=== PATIENT | female | born 1970 | race Asian ===

== ENCOUNTER 2017-05-18 04:20 | Inpatient (IN) | payer SELFPAY ==
[~2017-05-18] VITALS: Ht 163 cm; Wt 72.1 kg
[2017-05-18] MEDS ORDERED: CARBOPROST 250 MCG/ML AMP IM PRN (04:55)
[2017-05-18] MEDS ORDERED: NALBUPHINE HYDROCHLORIDE 10 MG/ML VIAL IVP PRN (04:55)
[2017-05-18] MEDS ORDERED: OXYTOCIN 10 UNITS/ML VIAL IM SCH (04:55)
[2017-05-18] MEDS ORDERED: PROMETHAZINE 25 MG/ML VIAL IVP PRN (04:55)
[2017-05-18] MEDS ORDERED: METHYLERGONOVINE 0.2 MG/ML AMP IM PRN (04:55)
[2017-05-18] MEDS: LACTATED RINGERS 1,000 ML IV SCH ×2 (05:00→07:00)
[2017-05-18] MEDS ORDERED: OXYTOCIN 10 UNITS/ML VIAL IM ONE (05:00)
[2017-05-18 05:27] LABS: BASOPHILS # (AUTO) 0.2 K/uL (0.00-0.22); BASOPHILS % (AUTO) 2.6 % (0.0-2.0); EOSINOPHILS % (AUTO) 0.5 % (0.0-4.0); HEMATOCRIT 34.6 % (36-48); HEMOGLOBIN 11.1 g/dL (12.0-16.0); MEAN CORPUSCULAR HEMOGLOBIN 28 pg (27-31); MEAN CORPUSCULAR HGB CONC 32 g/dL (33-37); MEAN CORPUSCULAR VOLUME 88 fL (80-94); MONOCYTES # (AUTO) 0.5 K/uL (0.8-1.0); NEUTROPHILS # (AUTO) 6.1 K/uL (1.8-7.7); NEUTROPHILS % (AUTO) 67.9 % (42.2-75.2); PLATELET COUNT (AUTO) 104 K/uL (140-450); RED BLOOD CELL COUNT(AUTO) 3.92 MIL/uL (4.20-5.40); RED CELL DISTRIBUTION WIDTH 16.3 % (11.6-13.7); WHITE BLOOD COUNT (AUTO) 8.8 K/uL (4.8-10.8)
[2017-05-18] MEDS ORDERED: NALBUPHINE HYDROCHLORIDE 10 MG/ML VIAL ONE (05:27)
[2017-05-18 05:29] LABS: BILIRUBIN,URINE NEGATIVE (NEGATIVE); BLOOD, URINE 3+ (NEGATIVE); COLOR,URINE YELLOW (YELLOW); LEUKOCYTE ESTERASE ,URINE NEGATIVE (NEGATIVE); NITRITE, URINE NEGATIVE (NEGATIVE); UGLUCOSE NEGATIVE (NEGATIVE)
[2017-05-18] MEDS ORDERED: OXYTOCIN 20 UNITS/LR PREMIX 1,000 ML IV ONE (05:45)
[2017-05-18] MEDS ORDERED: OXYTOCIN 10 UNITS/ML VIAL ONE (05:45)
[2017-05-18] MEDS ORDERED: LIDOCAINE 1% 50 ML ONE (05:49)
[2017-05-18 05:56] LABS: ALBUMIN 2.5 g/dL (3.4-5.0); ANION GAP 12.6 (8-16); CARBON DIOXIDE 24.9 mmol/L (21-32); CREATININE 0.6 mg/dL (0.6-1.3); POTASSIUM 3.5 mmol/L (3.5-5.1); TOTAL BILIRUBIN 0.3 mg/dL (0.0-1.0)
[2017-05-18] MEDS ORDERED: fentaNYL 0.05 MG/ML VIAL ONE (05:57)
[2017-05-18] MEDS ORDERED: MORPHINE PRES FREE 10 MG/10 ML AMP IV ONE (06:21)
[2017-05-18 06:32] LABS: APPEARANCE,URINE CLEAR (CLEAR)
[2017-05-18 06:33] LABS: RBC,URINE 0-5 (RARE) /HPF (0-5); WBC,URINE 0-5 (RARE) /HPF (0-5)
[2017-05-18 07:34] VITALS: BP 115/66
[2017-05-18] MEDS ORDERED: HYDROcodone/APAP 5/325 MG 1 TAB TAB PO PRN (08:00)
[2017-05-18] MEDS ORDERED: TEMAZEPAM 15 MG CAP PO PRN (08:00)
[2017-05-18] MEDS ORDERED: BENZOCAINE/MENTHOL 20%-0.5% 60 GM CAN TP PRN (08:00)
[2017-05-18] MEDS ORDERED: oxyCODONE/APAP 5/325 MG 1 TAB TAB PO PRN (08:00)
--- NOTE | 2017-05-18 09:54 | NUR ---
PATIENT HAS BEEN SCREENED AND CATEGORIZED LOW NUTRITION RISK. PATIENT WILL BE SEEN WITHIN 7 DAYS OF ADMISSION. 05/24/[address]
[2017-05-19 06:10] LABS: HEMATOCRIT 31.3 % (36-48); HEMOGLOBIN 10.3 g/dL (12.0-16.0)
[2017-05-19] MEDS ORDERED: ONDANSETRON 4 MG/2 ML VIAL IVP ONE (09:54)
[2017-05-19] MEDS ORDERED: DOCUSATE SOD/SENNA 50/8.6 MG 1 TAB PO SCH (21:00)
[2017-05-19] MEDS ORDERED: INFLUENZA VIRUS VACCINE QUAD 0.5 ML SYR IMVAC ONE (21:18)
[2017-05-19] MEDS ORDERED: INFLUENZA VIRUS VACCINE QUAD 0.5 ML SYR IMVAC SCH (22:00)
[2017-05-20] MEDS ORDERED: IBUP-2213 PO (14:35)
[2017-05-20] MEDS ORDERED: IBUP-1842 PO (14:36)
== END 2017-05-20 15:50 | disposition home or self-care (01) | DRG 775 ==
LOC: MFCC 04:20 → MLD 04:27 → MFCC 10:40
PROVIDERS: ADMIT Obstetrics & Gynecology; ATTEND Obstetrics & Gynecology
PROC: 10E0XZZ Delivery of Products of Conception, External Approach (ICD-10-PCS; principal; 2017-05-18)
PROC: 0W8NXZZ Division of Female Perineum, External Approach (ICD-10-PCS; 2017-05-18)
PROC: 3E0R3BZ Introduction of Anesthetic Agent into Spinal Canal, Percutaneous Approach (ICD-10-PCS; 2017-05-18)
PROC: 00HU33Z Insertion of Infusion Device into Spinal Canal, Percutaneous Approach (ICD-10-PCS; 2017-05-18)
DX: O99.12 Other diseases of the blood and blood-forming organs and certain disorders involving the immune mechanism complicating childbirth (principal); D69.6 Thrombocytopenia, unspecified; Z37.0 Single live birth; Z3A.39 39 weeks gestation of pregnancy
CPT/HCPCS: 36415; 51702; 59409; 80053; 81001; 85018; 85025; 86592; 86886; 86900; 86901; 90658; 90715; J2001; J2270; J2300; J2405; J2590; J3010; J7120